=== PATIENT | female | born 1950 | race African-American/Black ===

== ENCOUNTER 2022-09-07 13:56 | Outpatient (CLI) | payer MEDICARE, SELFPAY ==
[2022-09-07 14:59] LABS: Anion Gap 4 mmol/L (8-16); Blood Urea Nitrogen 17 mg/dL (7-17); Calcium 8.8 mg/dL (8.4-10.2); Carbon Dioxide 29 mmol/L (22-30); Chloride 106 mmol/L (98-107); Estimated Glomerular Filt Rate > 60; Glucose 115 mg/dL (65-110); Sodium 139 mmol/L (137-145)
== END 2022-09-07 13:57 | disposition home or self-care (01) ==
PROVIDERS: Anesthesiology; Visit Provider Obstetrics & Gynecology
DX: E11.9 Type 2 diabetes mellitus without complications (principal); Z01.818 Encounter for other preprocedural examination
CPT/HCPCS: 36415; 80048

== ENCOUNTER 2022-10-13 00:45 | Day surgery (SDC) | payer MEDICARE, SELFPAY ==
[2022-09-06 10:48] VITALS: BMI 36.3
--- NOTE | 2022-09-06 11:16 | PC.NURSE ---
Report to the Outpatient Waiting Room, entrance under the green pavilion located off [facility], at time __11:30AM on date __09/15/22 . Planned Procedure Time: __1:30PM . Time changes happen often and if your time is changed the preop area will call you the afternoon before. - You and your visitor will be asked to self-screen and do not enter if you have any COVID symptoms. - A mask is optional within the hospital at this time. Patients may have clear liquids (water, carbonated beverages, clear teas, apple juice) until 3 hours prior to surgery with a maximum of 20 ounces. - No food from midnight until time of surgery Take the following medications with a SIP of water the morning of surgery: ___AMLODIPINE DO NOT STOP ANY OF YOUR OTHER PRESCRIPTION MEDICATIONS PRIOR TO SURGERY ?EXCEPT THE FOLLOWING Medications to discontinue per physician ____NONE Date to take last dose Please no make-up, nail uruguayan, hairspray, perfume, deodorant, or body powder the day of surgery. No jewelry (including any body piercings) or valuables the day of surgery, leave them at home. Please take a shower or bath the night before, or the morning of, surgery with an antibacterial soap. Wear comfortable, loose fitting clothing. Children are encouraged to wear pajamas. - Jewelry must be removed prior to entering the operating room. Rings and piercings that are not removed may be cut off. - The hospital will not accept responsibility for valuables. - Please leave all valuables, including medications, at home the day of surgery. If you are going home after surgery, a licensed sprinkler truck driver must drive you home. - NO public transportation without another adult if you receive anesthesia. - We recommend that an adult stay with you for 24 hours following discharge. - We also recommend that you do not drive, make important decision, drink alcoholic beverages, or take any drugs that were not prescribed by your health care provider for at least 24 hours after your discharge time. Follow any additional instructions given to you from your surgeon. If you or anyone in your household have experienced Covid symptoms in the past week, please notify your surgeon or the nurse liaison at the phone number below for possible testing. Telephone instructions given to _PATIENT and asked if any additional questions and then verbalized understanding. Patient advised to call surgeon office or pre surgery nurse liaison [phone] if any additional questions.
--- NOTE | 2022-10-06 13:25 | PC.NURSE ---
PATIENT RESCHEDULED R/T SURGEON BEING UNAVAILABLE. NEW DATE/TIME GIVEN TO PATIENT. NO CHANGE IN ALLERGIES, MEDS OR PMH. ALL PRE-OP INSTRUCTIONS REVIEWED, PT RELAYS UNDERSTANDING. Report to the Outpatient Waiting Room, entrance under the green pavilion located off [facility], at time _10:30AM on date __10/13/22 . Planned Procedure Time: _12:30PM . Time changes happen often and if your time is changed the preop area will call you the afternoon before. - You and your visitor will be asked to self-screen and do not enter if you have any COVID symptoms. - A mask is optional within the hospital at this time. Patients may have clear liquids (water, carbonated beverages, clear teas, apple juice) until 3 hours prior to surgery with a maximum of 20 ounces. - No food from midnight until time of surgery Take the following medications with a SIP of water the morning of surgery: ___AMLODIPINE DO NOT STOP ANY OF YOUR OTHER PRESCRIPTION MEDICATIONS PRIOR TO SURGERY ?EXCEPT THE FOLLOWING Medications to discontinue per physician NONE Date to take last dose Please no make-up, nail american, hairspray, perfume, deodorant, or body powder the day of surgery. No jewelry (including any body piercings) or valuables the day of surgery, leave them at home. Please take a shower or bath the night before, or the morning of, surgery with an antibacterial soap. Wear comfortable, loose fitting clothing. Children are encouraged to wear pajamas. - Jewelry must be removed prior to entering the operating room. Rings and piercings that are not removed may be cut off. - The hospital will not accept responsibility for valuables. - Please leave all valuables, including medications, at home the day of surgery. If you are going home after surgery, a licensed truck driver helper must drive you home. - NO public transportation without another adult if you receive anesthesia. - We recommend that an adult stay with you for 24 hours following discharge. - We also recommend that you do not drive, make important decision, drink alcoholic beverages, or take any drugs that were not prescribed by your health care provider for at least 24 hours after your discharge time. Follow any additional instructions given to you from your surgeon. If you or anyone in your household have experienced Covid symptoms in the past week, please notify your surgeon or the nurse liaison at the phone number below for possible testing. Telephone instructions given to __PATIENT and asked if any additional questions and then verbalized understanding. Patient advised to call surgeon office or pre surgery nurse liaison [phone] if any additional questions.
[2022-10-13] MEDS: ACETAMINOPHEN 500 MG TABLET 1000 MG PO (07:00)
[2022-10-13] MEDS: LACTATED RINGERS 1,000 ML 30 ML IV CONT (07:00)
--- NOTE | 2022-10-13 07:22 | PM.IMHP ---
H&P: HPI History of Present Illness Date/Time: 10/13/22 07:22 Chief Complaint: Endometrial polyp Narrative: Patient with history of postmenopausal bleeding with subsequent workup showing thickened endometrial stripe on ultrasound and office biopsy showing endometrial polyp. She was recommended for D and C hysteroscopy and removal of lesion. Review of Systems Review of Systems: All systems reviewed & are unremarkable except as noted in HPI and below Constitutional: Constitutional: Reports no additional constitutional complaints Eyes: Eyes: Reports no additional eye complaints Cardiovascular: Cardiovascular: Reports no additional cardiovascular complaints, Denies chest pain and Denies dyspnea Respiratory: Respiratory: Reports no additional respiratory complaints and Denies dyspnea Gastrointestinal: Gastrointestinal: Reports abdominal pain, Denies change in bowel habits, Denies diarrhea, Denies nausea and Denies vomiting Genitourinary: Genitourinary: Reports no additional female genitourinary complaints Musculoskeletal: Musculoskeletal: Reports no additional musculoskeletal complaints Integumentary/Breasts: Skin/Breast: Reports system reviewed and no additional complaints, except as docu Neurologic: Reports system reviewed and no additional complaints, except as documented Psychiatric: Psychiatric: Reports no additional psychiatric complaints [facility] Past Medical History Medical History Breast cancer Diabetes Surgical History Surgical History History of lumpectomy of right breast Tubal ligation status Family History Family History Other Lymphoma Ovarian cancer Social History Social History Smoking packs per day: 0.3 Smoking cigarettes per day: 6.0 Years smoked: 15 Smoking pack-years: 4.50 Smoking status: Former smoker Tobacco type: cigarettes Smoking end date: 09/02/17 Alcohol intake: current Drinks per week: 3 Substance use: never Substance use type: marijuana Other substance usage details: SMOKES FEW DAYS/WEEK TO AID IN SLEEP Lack of Transportation: No Lack of Food: Never True Current Housing: I Have Housing Concerned About Future Housing: No Difficulty Paying Gas/Electric Bills: No Difficulty Paying for Meds: No Currently Unemployed: No Difficulty w/ Childcare or Family Care: No Living arrangements: with family Additional living arrangements comments: S.O. Spiritual care concerns: No Meds Home Medications and Allergies Home Medications Medication Instructions Recorded Confirmed Type amlodipine 10 mg tablet 10 mg PO QAM 09/06/22 10/06/22 History anastrozole 1 mg tablet 1 mg PO QAM 09/06/22 10/06/22 History celecoxib 100 mg capsule 100 mg PO BID PRN Pain 09/06/22 10/06/22 History ibuprofen 800 mg tablet 800 mg PO BID PRN Pain 09/06/22 10/06/22 History metformin 500 mg tablet,extended 500 mg PO QAM 09/06/22 10/06/22 History release 24 hr simvastatin 20 mg tablet 20 mg PO HS 09/06/22 10/06/22 History Allergies Allergy/AdvReac Type Severity Reaction Status Date / Time bp med Allergy Mild lip Uncoded 10/06/22 13:13 swelling Exam Const: Orientation/consciousness: oriented to person and oriented to place HENMT: Head: normal to inspection Eyes: General: appearance normal, both eyes and all related structures Resp: Effort & Inspection: normal respiratory effort Auscultation: clear to auscultation bilaterally Cardio: Rate: regular rate Rhythm: regular rhythm GI: Inspection: normal to inspection GI Palp: No Rebound tenderness present Neuro: General: oriented to person and oriented to place Cognition (Neuro): normal cognition Extrem: General: normal to inspection Psych: Appearance: grossly normal and
--- NOTE | 2022-10-13 07:28 | WPDHPUPDATE1 ---
History and Physical Update Update Date/Time: 10/13/22 07:28 History and Physical has been reviewed, including an updated exam of the patient. There are NO changes in the patient's condition. Risks, benefits, and alternatives have been discussed and questions answered. Patient agrees to proceed with procedure.
[2022-10-13 07:34] LABS: Glucose Point of Care 91 mg/dl (65-105)
--- NOTE | 2022-10-13 07:58 | WPDANESEPP ---
Anes - Eval Pre Procedure Procedure: Operation Date: 10/13/22 08:00 Proposed Procedures p Hysteroscopy Dilation and Curettage with Endometrial Polypectomy - Chucho Durand MD Date/Time: 10/13/22 07:58 Pre Op Diagnosis: endometrial polyp Patient Data Age: 72 Gender: F Height: 1.65 m Weight: 99 kg Allergies Allergy/AdvReac Type Severity Reaction Status Date / Time bp med Allergy Mild lip Uncoded 10/06/22 13:13 swelling Home Medications Medication Instructions Recorded Confirmed Type amlodipine 10 mg tablet 10 mg PO QAM 09/06/22 10/06/22 History anastrozole 1 mg tablet 1 mg PO QAM 09/06/22 10/06/22 History celecoxib 100 mg capsule 100 mg PO BID PRN Pain 09/06/22 10/06/22 History ibuprofen 800 mg tablet 800 mg PO BID PRN Pain 09/06/22 10/06/22 History metformin 500 mg tablet,extended 500 mg PO QAM 09/06/22 10/06/22 History release 24 hr simvastatin 20 mg tablet 20 mg PO HS 09/06/22 10/06/22 History Laboratory Tests 10/13/22 07:31 POC Capillary Glucose 91 mg/dl (65-105) Patient hx anesthesia problems: none Family hx anesthesia problems: none Results Review: All pre-operative results and documents have been reviewed as part of the pre-operative evaluation. [facility] Past Medical History Medical History Breast cancer Diabetes Surgical History Surgical History History of lumpectomy of right breast Tubal ligation status Family History Family History Other Lymphoma Ovarian cancer Social History Social History Smoking packs per day: 0.3 Smoking cigarettes per day: 6.0 Years smoked: 15 Smoking pack-years: 4.50 Smoking status: Former smoker Tobacco type: cigarettes Smoking end date: 09/02/17 Alcohol intake: current Drinks per week: 3 Substance use: never Substance use type: marijuana Other substance usage details: SMOKES FEW DAYS/WEEK TO AID IN SLEEP Lack of Transportation: No Lack of Food: Never True Current Housing: I Have Housing Concerned About Future Housing: No Difficulty Paying Gas/Electric Bills: No Difficulty Paying for Meds: No Currently Unemployed: No Difficulty w/ Childcare or Family Care: No Living arrangements: with family Additional living arrangements comments: S.O. Spiritual care concerns: No Exam Day of Procedure 10/13/22 07:58 Heart: regular rate and rhythm Lungs: clear to auscultation Airway: Mallampati scale class II Neurological: alert and oriented
[2022-10-13 08:06] VITALS: BP 157/70; PULSE 84; RESP 16; TEMP 36.3; O2SAT 100
--- NOTE | 2022-10-13 08:07 | P.PNAN_ITS ---
Anes - Eval Final PreProcedure Day of Procedure 10/13/22 08:07 Patient weight: obese Heart: regular rate and rhythm Lungs: clear to auscultation Airway: Mallampati scale class II Neurological: alert and oriented Last oral intake: >/= 8 hours ASA classification: III Emergent: no Anesthetic plan: proceed Anesthesia type and monitoring: general GIVS and standard monitoring Results Review: All pre-operative results and documents have been reviewed as part of the pre- operative evaluation. Informed Consent: The patient's anesthetic plan and its attendant risks and benefits were discussed with the patient/family/POA. Questions were solicited and answers provided to the satisfaction of the patient/family/POA.
[2022-10-13] MEDS: ceFAZolin 2 GM/D5W 50 ML 2 GM/50 ML BAG IVPB (08:11)
[2022-10-13] MEDS: LIDOCAINE HCL 1% LOCAL INJ 20 ML VIAL 10 ML INFILTRATE (08:34)
[2022-10-13 08:39] VITALS: BP 116/90; PULSE 88; RESP 12; O2SAT 97
[2022-10-13 08:50] LABS: Glucose Point of Care 95 mg/dl (65-105)
--- NOTE | 2022-10-13 08:51 | W.PM.PROC2 ---
Procedure Note - Detailed Date of Procedure 10/13/22 Pre-op Diagnosis endometrial polyp Post-op Diagnosis Same Procedure Performed Hysteroscopic removal of endometrial lesion. Surgeon Chucho Durand MD Anesthesia MAC and Local Indications Postmenopausal bleeding and endometrial polyp on endometrial biopsy. Findings Large multiloculated endometrial polyp removed completely the rest of the cavity was a trophic Description of Procedure Patient was taken to the operating room and adequate IV sedation was administered. She was placed then low lithotomy position and prepped and draped in sterile fashion. Attention was turned to the vagina speculum was inserted single-tooth tenaculum placed on anterior lip of the cervix. 1% lidocaine plain was injected at the cervical vaginal interface at the 258 and 10 position. The uterus was sounded to 9 cm. The hysteroscope was inserted and using hydrodilation the scope was advanced into the cervix and into the uterine cavity. The large polyp was visualized. The rest of the cavity was atrophic. The Aveta resection instrument was inserted and the was removed completely. A subsequent curettage was performed. Single-tooth tenaculum removed. Hemostasis noted. Patient tolerated procedure well. Sponge count correct. Total insufflation fluid use was 1600 fluid deficit 180 cc resection time 60 seconds. Estimated Blood Loss 5 Drains No Packing No Pathology Yes (Endometrial shavings from endometrial polyp and endometrial curettings.) Complications No immediate complications Condition Stable Disposition Same day [facility] Billing Surgery - Charge Forward: Surgery Billing
[2022-10-13 09:10] VITALS: BP 132/75; PULSE 76; RESP 16
== END 2022-10-13 09:37 | disposition home or self-care (01) ==
PROVIDERS: Visit Provider Obstetrics & Gynecology
PROC: 0U5B8ZZ Destruction of Endometrium, Via Natural or Artificial Opening Endoscopic (ICD-10-PCS; CPT 58563; principal; 2022-10-13 08:00)
DX: N84.0 Polyp of corpus uteri (principal); E11.9 Type 2 diabetes mellitus without complications; Z79.84 Long term (current) use of oral hypoglycemic drugs; Z79.811 Long term (current) use of aromatase inhibitors; Z85.3 Personal history of malignant neoplasm of breast; Z87.891 Personal history of nicotine dependence; F12.90 Cannabis use, unspecified, uncomplicated
CPT/HCPCS: 58558; 36415; 80048; 82948; 88305; A9270; J0690; J2704; J3010; J7120